=== PATIENT | female | born 1960 | race Caucasian/White ===

== ENCOUNTER 2024-03-18 18:17 | Emergency (ER) | payer MEDICARE ==
[~2024-03-18] VITALS: Ht 167.6 cm; Wt 75.0 kg
[2024-03-18] MEDS: OXYcodone (OXYCONTIN) Ext Release 15 MG TAB.SR.12H PO ONE (19:53)
[2024-03-18] MEDS ORDERED: HYDR-3972 PO (20:38)
[2024-03-18 20:42] VITALS: BP 122/74; PULSE 86; RESP 18; TEMP 98.6; O2SAT 98
== END 2024-03-18 20:43 | disposition home or self-care (01) ==
LOC: ER 18:18
DX: S82.852A Displaced trimalleolar fracture of left lower leg, initial encounter for closed fracture (principal); W19.XXXA Unspecified fall, initial encounter; Y93.89 Activity, other specified; Y92.89 Other specified places as the place of occurrence of the external cause; Y99.8 Other external cause status
CPT/HCPCS: 29515; 73610; 99283; A6446; A6449

== ENCOUNTER 2024-04-02 10:55 | Inpatient (IN) | payer MEDICARE ==
[2024-03-31 16:11] LABS: BASOPHILS % (AUTO) 0.8 % (0-1); EOSINOPHILS # (AUTO) 0.1 X10'3 (0-0.9); EOSINOPHILS % (AUTO) 1.3 % (0-6); LYMPHOCYTES # (AUTO) 1.4 X10'3 (1.1-4.8); LYMPHOCYTES % (AUTO) 21.8 % (21-51); MEAN CORPUSCULAR HEMOGLOBIN 31.9 PG (27.0-31.0); MEAN PLATELET VOLUME 7.5 FL (7.4-10.4); MONOCYTES # (AUTO) 0.5 X10'3 (0-0.9); MONOCYTES % (AUTO) 8.4 % (2-12); NEUTROPHILS # (AUTO) 4.3 X10'3 (1.8-7.7); NEUTROPHILS % (AUTO) 67.7 % (42-75); PRE OP HEMATOCRIT 38.4 % (35.0-45.0); PRE OP HEMOGLOBIN 13.1 g/dL (12.0-16.0); PRE OP PLATELET COUNT 284 X10'3 (140-440); PRE OP WHITE BLOOD COUNT 6.3 10'3 (4.8-10.8); RED BLOOD COUNT 4.09 X10'6 (4.20-5.60); RED CELL DISTRIBUTION WIDTH 13.9 % (11.5-14.5)
[2024-03-31 16:13] LABS: ALBUMIN/GLOBULIN RATIO 1.3 (1.1-1.5); ALKALINE PHOSPHATASE 78 IU/L (46-116); BLOOD UREA NITROGEN 13 MG/DL (7-18); BUN/CREATININE RATIO 17.8 (10.0-20.0); CALCIUM 9.2 MG/DL (8.5-10.1); CHLORIDE 103 MMOL/L (99-107); CREATININE 0.73 MG/DL (0.40-0.90); PRE OP ALT 25 U/L (30-65); PRE OP ANION GAP 8 (8-16); PRE OP AST 21 U/L (10-37); PRE OP GLUCOSE 111 MG/DL (70-104); PRE OP POTASSIUM 3.6 MMOL/L (3.4-5.1); PRE OP SODIUM 141 MMOL/L (135-145); TOTAL CARBON DIOXIDE 29.7 MMOL/L (24-32); eGFR 80 ML/MIN
[2024-04-01] MEDS: DOCUMENT DATE & TIME OF BETA-BLOCKER PO ONE (20:00)
[~2024-04-02] VITALS: Ht 167.6 cm; Wt 74.8 kg
[2024-04-02] VITALS (23 sets, daily range): BP systolic 110–143; BP diastolic 66–88; PULSE 74–112; RESP 10–16; TEMP 98.3–98.4; O2SAT 88–98
[2024-04-02] MEDS: ringers solution, lacted 1,000 ML IV SCH ×2 (05:30→12:15)
[~2024-04-02 10:55] MED LIST: AMLO5TAB16 PO; CELE-127 PO; CYCL-1 PO; DULO60CA65 PO; GABA800T11 PO; LEVO25TA7 PO; METF-1203 PO; METF-436 PO; OXYC15TA PO; PROP10TA10 PO; ROSU10TA72 PO; TRAZ-251 PO
[2024-04-02] MEDS: cefazolin 2gm/D5W 100mL 100 ML IV ONE (11:11)
[2024-04-02] MEDS: vancomycin 1,500 MG in NS 300ml IV soln IV ONE (11:24)
[2024-04-02] MEDS: famotidine 20mg tablet PO ONE (11:24)
[2024-04-02] MEDS ORDERED: BUPIVAcaine 2.5mg/ml inj 50ml vial (contains preservative) ONE (11:46)
[2024-04-02] MEDS ORDERED: HYDROmorphone/PF 0.2 MG/ML SYRINGE IV PRN (12:15)
[2024-04-02] MEDS ORDERED: labetalol 20mg/4ml (5mg/ml) syringe IV PRN (12:15)
[2024-04-02] MEDS ORDERED: hydrALAZINE 20mg/ml inj. IV PRN (12:15)
[2024-04-02] MEDS ORDERED: meperidine/PF 25mg/ml syringe IV PRN (12:15)
[2024-04-02] MEDS ORDERED: proCHLORperazine 10 MG/2 ml inj IV PRN (12:15)
[2024-04-02] MEDS ORDERED: ondansetron/PF 4mg/2ml inj IV PRN ×2 (12:15→19:10)
[2024-04-02] MEDS ORDERED: sevoflurane 250ml liquid IH ONE (14:55)
[2024-04-02] MEDS ORDERED: BUPIVACAINE liposomal/PF 13.3 MG/ML vial IM ONE (14:56)
[2024-04-02] MEDS ORDERED: BUPIVAcaine/PF 2.5mg/ml (0.25%) 10ml vial ONE (14:56)
[2024-04-02] MEDS ORDERED: midazolam 1 mg/ML 2ml injection ONE (15:03)
[2024-04-02] MEDS ORDERED: fentaNYL /PF 50mcg/ml 5ml ampule ONE (15:33)
[2024-04-02] MEDS ORDERED: dexamethasone sod phosphate 4mg/ml inj. ONE (15:34)
[2024-04-02] MEDS ORDERED: ondansetron/PF 4mg/2ml inj ONE (15:34)
[2024-04-02] MEDS ORDERED: ePHEDrine 50MG/ML INJ. ONE (16:53)
[2024-04-02] MEDS ORDERED: 0.9 % SODIUM CHLORIDE 10 ML VIAL ONE (17:44)
[2024-04-02] MEDS ORDERED: morphine 10mg/ml inj. ONE (17:54)
[2024-04-02] MEDS: HYDROmorphone/PF 0.2 MG/ML SYRINGE IV PRN (18:26)
[2024-04-02] MEDS: acetaminophen 1,000mg/100ml IV 100 ML IV ONE (18:30)
[2024-04-02] MEDS: morphine 4 MG/ML inj SYRINge IV PRN (18:53)
[2024-04-02] MEDS ORDERED: acetaminophen 325mg tablet PO PRN (19:10)
[2024-04-02] MEDS ORDERED: diphenhydrAMINE 25mg capsule PO PRN ×2 (19:10)
[2024-04-02] MEDS ORDERED: HYDROmorphone inj. 0.5 MG/0.5 ML DISP.SYRIN IV PRN (19:10)
[2024-04-02] MEDS ORDERED: HYDROmorphone 1 mg/ml syringe IV PRN (19:10)
[2024-04-02] MEDS ORDERED: bisacodyl 10mg suppository rectal RC PRN (19:10)
[2024-04-02] MEDS ORDERED: naloxone 0.4 mg/ml inj IV PRN (19:10)
[2024-04-02] MEDS ORDERED: oxyCODONE IR 5mg (immed. release) tablet PO PRN (19:10)
[2024-04-02] MEDS ORDERED: magnesium hydroxide 30ml (MOM) UD suspension PO PRN (19:10)
[2024-04-02] MEDS: morphine 2 MG/ML inj. syringe IV PRN (19:18)
[2024-04-02] MEDS: oxyCODONE IR 5mg (immed. release) tablet PO PRN (19:51)
[2024-04-02] MEDS: amLODIPine 5mg tablet PO SCH (21:00)
[2024-04-02] MEDS ORDERED: gabapentin 300mg capsule PO SCH (21:00)
[2024-04-02] MEDS ORDERED: celeCOXIB 100mg capsule PO SCH (21:00)
[2024-04-03] VITALS: BP 136/69; PULSE 68; RESP 16; O2SAT 92
[2024-04-03] MEDS: duloxetine 30mg CAPSULE.DR PO SCH (00:27)
[2024-04-03] MEDS: sennosides 8.6mg tablet PO SCH (00:27)
[2024-04-03] MEDS: metFORMIN 500mg tablet PO SCH ×2 (00:27→07:15)
[2024-04-03] MEDS: traZODone 50mg tablet PO SCH (00:27)
[2024-04-03] MEDS: gabapentin 400mg capsule PO SCH (00:28)
[2024-04-03] MEDS: acetaminophen 325mg tablet PO SCH (00:28)
[2024-04-03] MEDS: oxyCODONE IR 5mg (immed. release) tablet PO SCH (00:28)
[2024-04-03] MEDS: cyclobenzaprine 10mg tablet PO SCH (00:29)
[2024-04-03] MEDS: ROSUVASTATIN CALCIUM 5 MG TABLET PO SCH (00:29)
[2024-04-03] MEDS: propranolol 10mg tablet PO SCH (00:29)
[2024-04-03] MEDS: vancomycin/NS 1 GM ADD-VANTAGE 250 ML IV SCH (00:30)
[2024-04-03 02:00] VITALS: BP 119/54; PULSE 64; RESP 16; TEMP 98.4; O2SAT 95
[2024-04-03] MEDS: potassium Cl 20mEq in NS 1,000 ML IV SCH (03:10)
[2024-04-03 06:00] VITALS: BP 115/57; PULSE 75; RESP 16; TEMP 98.9; O2SAT 93
[2024-04-03] MEDS: levoTHYROXINE 25mcg tablet PO SCH (07:16)
[2024-04-03 07:23] VITALS: RESP 14; O2SAT 95
[2024-04-03 10:00] VITALS: BP 100/47; PULSE 76; RESP 16; TEMP 98; O2SAT 93
[2024-04-03 13:54] VITALS: RESP 16
[2024-04-03] MEDS ORDERED: ASPI81TA52 PO (15:01)
[2024-04-03] MEDS ORDERED: celeCOXIB 100mg capsule PO SCH (20:00)
[2024-04-03] MEDS ORDERED: enoxaparin 40mg/0.4ml syringe SUBCUT SCH (20:00)
[2024-04-04] MEDS ORDERED: acetaminophen 325mg tablet PO PRN (19:10)
== END 2024-04-03 15:00 | disposition home health service (06) | DRG 492 ==
LOC: PAS 10:55 → ORTHO 4S 19:15
PROVIDERS: ADMIT Orthopaedic Surgery; ATTEND Orthopaedic Surgery
PROC: 0QSH04Z Reposition Left Tibia with Internal Fixation Device, Open Approach (ICD-10-PCS; 2024-04-02)
PROC: 3E0T3BZ Introduction of Anesthetic Agent into Peripheral Nerves and Plexi, Percutaneous Approach (ICD-10-PCS; 2024-04-02)
PROC: 0QSK04Z Reposition Left Fibula with Internal Fixation Device, Open Approach (ICD-10-PCS; principal; 2024-04-02 14:55)
DX: S82.852A Displaced trimalleolar fracture of left lower leg, initial encounter for closed fracture (principal); J96.01 Acute respiratory failure with hypoxia; E11.9 Type 2 diabetes mellitus without complications; T88.59XA Other complications of anesthesia, initial encounter; E78.5 Hyperlipidemia, unspecified; G43.909 Migraine, unspecified, not intractable, without status migrainosus; K21.9 Gastro-esophageal reflux disease without esophagitis; F41.9 Anxiety disorder, unspecified; E03.9 Hypothyroidism, unspecified; I10 Essential (primary) hypertension; G47.00 Insomnia, unspecified; J45.909 Unspecified asthma, uncomplicated; W18.39XA Other fall on same level, initial encounter; Y93.89 Activity, other specified; Y92.89 Other specified places as the place of occurrence of the external cause; Y99.8 Other external cause status; Z98.891 History of uterine scar from previous surgery
CPT/HCPCS: 36415; 73600; 76000; 80053; 82948; 85025; 93005; 97116; 97161; 97530; A4215; A4615; A4618; A6449; A7000; C1713; C1769; C9290; G0378; J0131; J0690; J1100; J1171; J2250; J2270; J2274; J2405; J2704; J3010; J3370; J3480; J3490; J7120